=== PATIENT | male | born 1960 | race Caucasian/White ===

== ENCOUNTER 2017-08-11 22:41 | Emergency (ER) | payer OTHER ==
[~2017-08-11] VITALS: Ht 170.2 cm; Wt 115.7 kg
[~2017-08-11 22:41] MED LIST: ACTOPLUS MET 11 EAC1 PO; DILAUDID 2 MG TA2 MG PO; HYDROCHLOROTHIA25 M1 PO; LISINOPRIL20 MG PO; LOPRESSOR OR
[2017-08-11] MEDS ORDERED: METFORMIN HCL500 MG PO (23:03)
[2017-08-11] MEDS ORDERED: ZESTORETIC 20-1 EAC3 PO (23:04)
[2017-08-11] MEDS ORDERED: AMARYL4 MG PO (23:05)
[2017-08-11] MEDS ORDERED: AMLODIPINE BESY10 MG PO (23:05)
[2017-08-11] MEDS ORDERED: ULTRAM 50MG TAB50 MG PO (23:21)
[2017-08-11] MEDS ORDERED: FLEXERIL PO (23:22)
== END 2017-08-11 23:41 | disposition home or self-care (01) ==
LOC: ER 22:41
DX: M54.5 Low back pain (principal); E11.9 Type 2 diabetes mellitus without complications; Z88.0 Allergy status to penicillin; Z88.6 Allergy status to analgesic agent